=== PATIENT | male | born 1955 | race Caucasian/White ===

== ENCOUNTER 2023-04-12 15:30 | Emergency (ER) | payer MEDICARE, OTHER ==
[2023-04-12] MEDS ORDERED: Dexamethasone 10 MG/ML VIAL ONE (17:11)
[2023-04-12] MEDS ORDERED: Doxycycline 100 MG CAP ONE (17:11)
== END 2023-04-12 17:15 | disposition home or self-care (01) ==
LOC: MADERS 15:30
DX: J22 Unspecified acute lower respiratory infection (principal); E11.9 Type 2 diabetes mellitus without complications; E78.5 Hyperlipidemia, unspecified; Z79.84 Long term (current) use of oral hypoglycemic drugs; Z79.899 Other long term (current) drug therapy
CPT/HCPCS: 99283; J1100